=== PATIENT | male | born 1965 | race Caucasian/White ===

== ENCOUNTER 2017-11-11 17:31 | Emergency (ER) | payer OTHER ==
[~2017-11-11 17:31] MED LIST: METO100T9 PO; SUMA50 PO
[2017-11-11 17:33] VITALS: BP 132/91; PULSE 89; RESP 14; TEMP 97.9; O2SAT 98
--- NOTE | 2017-11-11 18:00 | PD ---
HPI Chief Complaint: Exposure to Blood/Body Fluids Time Seen by Provider: 17:48 Travel History International Travel<30 days: No Contact w/Intl Traveler<30days: No Traveled to known affect area: No History of Present Illness HPI 52-year-old male, [employer] employee, presents to the emergency department with blood exposure to his eyes and mouth today. He flushed his eyes prior to arrival. Reports being up-to-date on his vaccinations. Denies history of hepatitis or HIV. Does not know source patient's status. No known aggravating or relieving factors. Duration prior to arrival. Onset prior to arrival. History of chronic kidney disease. Allergies to penicillin. Has no established primary care provider. Has no other medical complaints. No other modifying factors or associated signs and symptoms. PFSH Past Medical History Anxiety: Yes High Cholesterol: Yes Diminished Hearing: No Headaches: Yes (migraines) Neurologic: Yes (MIGRAINES) Immunizations Current: Yes Migraines: Yes Past Surgical History Oral Surgery: Yes (sinus) Tonsillectomy: Yes ( CHILD) Other Surgery: Yes (left knee and bilat shoulders) Social History Alcohol Use: No Tobacco Use: No (quit 2 yrs ago smoked cigs and e cigs) Substance Use: No Allergies-Medications (Allergen,Severity, Reaction): Coded Allergies: penicillin G (Unverified Allergy, Severe, Hives, 05/31/17) prochlorperazine (Unverified Allergy, Severe, over sedation, 05/31/17) Reported Meds & Prescriptions Reported Meds & Active Scripts Active Reported Metoprolol Succinate ER 100 mg (Metoprolol Succinate) 100 Mg Tab 100 Mg PO DAILY PRN Imitrex 50 Mg Tab (Sumatriptan Succinate) 50 Mg Tab 100 Mg PO DIRECTED PRN Review of Systems Except as stated in HPI: all other systems reviewed are Neg Physical Exam Narrative GENERAL: Well-nourished, well-developed male patient, in no acute distress SKIN: Warm and dry. HEAD: Atraumatic. Normocephalic. EYES: Pupils equal and round. No scleral icterus. No injection or drainage. ENT: Mucosa pink and moist. Airway patent. NECK: Trachea midline. CARDIOVASCULAR: Regular rate. RESPIRATORY: No accessory muscle use. GASTROINTESTINAL: Flat. MUSCULOSKELETAL: No obvious deformities. No clubbing. No cyanosis. No edema. NEUROLOGICAL: Awake and alert. Oriented 3. No obvious cranial nerve deficits. Motor grossly within normal limits. Normal speech. PSYCHIATRIC: Appropriate mood and affect; insight and judgment normal. Data Data Last Documented VS Vital Signs Date Time Temp Pulse Resp B/P (MAP) Pulse Ox O2 Delivery O2 Flow Rate FiO2 11/11/17 17:33 97.9 89 14 132/91 (105) 98 MDM Medical Decision Making Medical Screen Exam Complete: Yes Emergency Medical Condition: Yes Medical Record Reviewed: Yes Differential Diagnosis Exposure to blood, exposure to body fluids, medical clearance Narrative Course 52-year-old male, [employer] employee, with blood exposure in his eyes and mouth. Blood exposure protocol initiated. Instructed patient to follow up with primary care provider. Patient verbalizes understanding and agreement with treatment plan. Patient is medically cleared and stable for discharge. Discussed reasons to return to the emergency department. Patient agrees with treatment plan. The patients vital signs are stable and the patient is stable for outpatient follow-up and treatment. Patient discharged home, stable and in no acute distress. Diagnosis Primary Impression: Exposure to blood or body fluid Referrals: [place] [employer] [place] [place] Primary Care Physician Patient Instructions: General Instructions, Postexposure Prophylaxis (ED) Additional Instructions: Follow blood exposure protocol instructions Follow-up with employee med Follow-up with primary care Return to emergency department for worsening of symptoms Med/Other Pt SpecificInfo: No Change to Meds, No Meds Exist/No RX given Disposition: 01 DISCHARGE HOME Condition: Stable Bhavana Sinclair Nov 11, 2017 18:00
== END 2017-11-11 18:52 | disposition home or self-care (01) ==
LOC: NEPD 17:31
DX: Z77.21 Contact with and (suspected) exposure to potentially hazardous body fluids (principal); F41.9 Anxiety disorder, unspecified; E78.00 Pure hypercholesterolemia, unspecified; N18.9 Chronic kidney disease, unspecified; Z79.899 Other long term (current) drug therapy; Z88.0 Allergy status to penicillin; Z88.8 Allergy status to other drugs, medicaments and biological substances
CPT/HCPCS: 99281